=== PATIENT | male | born 1965 | race Asian ===

== ENCOUNTER 2017-02-25 14:07 | Emergency (ER) | payer BC ==
[2017-02-25] MEDS ORDERED: NAPROSYN500 MG PO (15:21)
[2017-02-25] MEDS ORDERED: NORFLEX100 MG PO (15:21)
== END 2017-02-25 15:36 | disposition home or self-care (01) ==
LOC: ER 14:07
DX: S16.1XXA Strain of muscle, fascia and tendon at neck level, initial encounter (principal); V89.2XXA Person injured in unspecified motor-vehicle accident, traffic, initial encounter; Y93.89 Activity, other specified; Y92.89 Other specified places as the place of occurrence of the external cause; Y99.8 Other external cause status